=== PATIENT | male | born 1950 | race Two or more races ===

== ENCOUNTER 2019-12-08 14:24 | Outpatient (CLI) | payer OTHER | END 2019-12-08 14:38 | disposition home or self-care (01) | LOC: LAB 14:24 | DX: M25.571 Pain in right ankle and joints of right foot (principal); M79.671 Pain in right foot; D64.89 Other specified anemias; E88.89 Other specified metabolic disorders; M06.4 Inflammatory polyarthropathy; N41.8 Other inflammatory diseases of prostate ==

== ENCOUNTER 2020-11-01 15:14 | Outpatient (CLI) | payer OTHER | END 2020-11-01 15:20 | disposition home or self-care (01) | LOC: LAB 15:14 | DX: I10 Essential (primary) hypertension (principal); I49.3 Ventricular premature depolarization; E78.2 Mixed hyperlipidemia; E55.9 Vitamin D deficiency, unspecified; E66.3 Overweight; Z68.25 Body mass index [BMI] 25.0-25.9, adult; N28.1 Cyst of kidney, acquired; N20.0 Calculus of kidney; F06.31 Mood disorder due to known physiological condition with depressive features; G47.33 Obstructive sleep apnea (adult) (pediatric); N40.0 Benign prostatic hyperplasia without lower urinary tract symptoms ==

== ENCOUNTER → 2020-11-02 | Outpatient (CLI) | payer OTHER | END | disposition home or self-care (01) | LOC: TOM 13:45 | DX: Q61.8 Other cystic kidney diseases (principal); I25.10 Atherosclerotic heart disease of native coronary artery without angina pectoris; J44.9 Chronic obstructive pulmonary disease, unspecified; G47.8 Other sleep disorders ==

== ENCOUNTER 2021-11-26 14:10 | Outpatient (CLI) | payer OTHER | END 2021-11-26 14:50 | disposition home or self-care (01) | LOC: ASH CLINIC 14:10 | PROVIDERS: ATTEND Orthopaedic Surgery | DX: U07.1 COVID-19 (principal); Z23 Encounter for immunization ==

== ENCOUNTER 2022-10-23 11:56 | Outpatient (CLI) | payer OTHER | END 2022-10-23 12:02 | disposition home or self-care (01) | LOC: RAD 11:56 | PROVIDERS: ATTEND Orthopaedic Surgery | DX: M25.572 Pain in left ankle and joints of left foot (principal); M79.672 Pain in left foot ==

== ENCOUNTER 2023-06-23 13:47 | Outpatient (CLI) | payer OTHER | END 2023-06-23 13:55 | disposition home or self-care (01) | LOC: RAD 13:47 | PROVIDERS: ATTEND Orthopaedic Surgery | DX: M25.562 Pain in left knee (principal) ==

== ENCOUNTER 2024-03-10 12:39 | Outpatient (CLI) | payer OTHER | END 2024-03-10 12:46 | disposition home or self-care (01) | LOC: RAD 12:39 | PROVIDERS: ATTEND Orthopaedic Surgery | DX: M25.571 Pain in right ankle and joints of right foot (principal); M79.671 Pain in right foot ==

== ENCOUNTER 2024-11-20 08:31 | Emergency (ER) | payer OTHER ==
[~2024-11-20] VITALS: Ht 177.8 cm; Wt 81.6 kg
[2024-11-20] MEDS ORDERED: LIPITOR20 MG (08:35)
[2024-11-20] MEDS ORDERED: EZETIMIBE10 MG (08:35)
[2024-11-20] MEDS ORDERED: ZESTRIL5 MG (08:35)
[2024-11-20] MEDS ORDERED: DEPAKOTE SPRIN125 MG (08:36)
[2024-11-20 08:37] VITALS: BP 145/77; O2SAT 93
[2024-11-20] MEDS ORDERED: METHYLPREDNISOLONE SOD SUCC 125 MG VIAL IV STA (08:56)
[2024-11-20] MEDS ORDERED: 0.9 % SODIUM CHLORIDE 1,000 ML IV STA (08:56)
[2024-11-20] MEDS ORDERED: IPRATROPIUM BROMIDE 0.5 MG/2.5 ML AMPUL.NEB IH STA (08:57)
[2024-11-20] MEDS ORDERED: BUDESONIDE 0.5 MG/2 ML AMPUL.NEB IH STA (08:57)
[2024-11-20] MEDS ORDERED: GUAIFENESIN 200 MG/10 ML BLIST.PACK PO STA (08:58)
[2024-11-20] MEDS ORDERED: ALBUTEROL SULFATE 3 ML/2.5 MG AMPUL.NEB IH SCH (09:00)
[2024-11-20] MEDS ORDERED: GUAIFENESIN 200 MG/10 ML BLIST.PACK PO ONE (09:11)
[2024-11-20] MEDS ORDERED: METHYLPREDNISOLONE SOD SUCC 125 MG VIAL ONE (09:11)
[2024-11-20] MEDS ORDERED: IPRATROPIUM BROMIDE 0.5 MG/2.5 ML AMPUL.NEB IH ONE (10:02)
[2024-11-20] MEDS ORDERED: BUDESONIDE 0.5 MG/2 ML AMPUL.NEB IH ONE (10:02)
[2024-11-20] MEDS ORDERED: ALBUTEROL SULFATE 3 ML/2.5 MG AMPUL.NEB IH ONE (10:02)
[2024-11-20 10:08] LABS: ALBUMIN 3.2 gm/dL (3.4-5.0); BILIRUBIN TOTAL 0.84 mg/dL (0.3-1.2); CREATININE SERUM 1.15 mg/dL (0.70-1.30); GFR 62.51; POTASSIUM 3.89 mEq/L (3.5-5.1); TOTAL PROTEIN 7.2 gm/dL (6.4-8.2)
[2024-11-20 10:45] LABS: HEMATOCRIT 46.3 % (39.0-48.0); HEMOGLOBIN 15.9 g/dL (13-16.00); MEAN CELL VOLUME 95.9 fL (80.0-100.00); MEAN CORPUSCULAR HEMOGLOBIN 32.9 pg (27.00-32.0); MEAN CORPUSCULAR HGB CONC 34.2 g/dl (32.0-36.0); PLATELET COUNT 175 K/uL (150-450); RED BLOOD COUNT 4.83 M/uL (4.00-6.00); RED CELL DISTRIBUTION WIDTH 13.7 % (11.5-14.5)
[2024-11-20 10:46] LABS: ABG PH 7.439 (7.35-7.45); ABG PO2 65.7 mmHg (80-100); BASE EXCESS 0.1 mmol/l; BICARBONATE 23.8 mmol/l (23-25); SaO2 93.4 %; allen test SATISFACTORY; o2 21 %; puncture site RADIAL RIGHT
[2024-11-20 11:49] LABS: PH,URINE 5.5 (5.0-8.0); URINE APPEARANCE Clear; URINE BILIRRUBIN Negative (NEGATIVE); URINE BLOOD Negative; URINE COLOR Yellow; URINE GLUCOSE Negative (NEGATIVE); URINE KETONE Negative (NEGATIVE); URINE LEUKOCYTE Negative; URINE NITRATE Negative; URINE PROTEIN Trace (NEGATIVE); URINE UROBILINOGEN 0.2 E.U./dl
[2024-11-20 11:54] LABS: URINE BACTERIA 8.5 uL (0.0-1933); URINE EPITHELIAL CELLS 4.5 uL (0.0-38.8)
[2024-11-20 12:02] LABS: URINE RBC 0.5 uL (0.0-20.8)
[2024-11-20 14:37] LABS: ABG PH 7.405 (7.35-7.45); ABG pCO2 38.2 mmHg (35-45); BICARBONATE 23.4 mmol/l (23-25); SaO2 94.9 %; Tco2 24.5 mmol/l
[2024-11-20 14:38] LABS: allen test SATISFACTORY; o2 21 %; puncture site RADIAL RIGHT
== END 2024-11-20 15:16 | disposition home or self-care (01) ==
LOC: ER 08:31
PROVIDERS: Emergency Medicine; General Practice
DX: R53.81 Other malaise (principal); J40 Bronchitis, not specified as acute or chronic; Z20.822 Contact with and (suspected) exposure to COVID-19
CPT/HCPCS: 36415; 71046; 82803; 94640; 96365; 96366; 99283; J3490; J7030

== ENCOUNTER 2025-09-19 12:18 | Outpatient (CLI) | payer OTHER ==
[~2025-09-19 12:18] MED LIST: DEPAKOTE SPRIN125 MG; EZETIMIBE10 MG; LIPITOR20 MG; ZESTRIL5 MG
== END 2025-09-19 12:26 | disposition home or self-care (01) ==
LOC: RAD 12:18
PROVIDERS: ATTEND Orthopaedic Surgery
DX: M79.642 Pain in left hand (principal)